=== PATIENT | male | born 1940 | race Caucasian/White ===

== ENCOUNTER 2022-11-12 07:48 | Emergency (ER) | payer MEDICARE ==
[2022-11-12 08:07] LABS: HEMATOCRIT 31.7 % (42.0-52.0); HEMOGLOBIN 10.7 g/dL (14.0-18.0); MEAN CORPUSCULAR HEMOGLOBIN 29.8 pg (27.0-32.0); MEAN CORPUSCULAR HGB CONC 33.8 g/dL (32.0-36.0); MEAN CORPUSCULAR VOLUME 88.3 fL (83.0-97.0); PLATELET COUNT,PLT 138 10^3/uL (150-400); RED BLOOD CELL COUNT 3.59 x10^6/uL (4.50-6.00); WHITE BLOOD CELL COUNT,WBC 14.3 10^3/uL (4.0-11.0)
[2022-11-12 08:22] LABS: ALANINE AMINOTRANSFERASE,ALT 7 U/L (12-78); ALBUMIN 2.7 g/dL (3.4-5.0); ALKALINE PHOSPHATASE 50 U/L (46-116); ASPARTATE AMNIOTRANSFERASE,AST 14 U/L (15-37); BILIRUBIN TOTAL 0.9 mg/dL (0.0-1.0); BLOOD UREA NITROGEN,BUN 49 mg/dL (7-18); CALCIUM 8.3 mg/dL (8.4-10.1); CARBON DIOXIDE,CO2 25 mmol/L (21-32); CHLORIDE,CL 97 mEq/L (98-106); CREATINE KINASE,CK 42 U/L (35-232); CREATININE 2.3 mg/dL (0.7-1.3); EST CRCL DRUG DOSING (CG) 25.19 mL/min; GLUCOSE RANDOM 110 mg/dL (75-99); MAGNESIUM 1.4 mg/dL (1.8-2.4); POTASSIUM,K 4.9 mEq/L (3.5-5.0); PROTEIN TOTAL,TP 5.9 g/dL (6.4-8.2); SODIUM,NA 132 mEq/L (136-145)
[2022-11-12] MEDS: Sodium Chloride 0.9% 1,000 ML IV ONE (08:23)
[2022-11-12] MEDS: Piperacillin/Tazobactam 4.5 GM in Sodium Chloride 0.9% 100 ML IV ONE (08:23)
[2022-11-12 08:35] LABS: C-REACTIVE PROTEIN 32.1 mg/dL (0.2-0.8); ESTIMATED GFR 28 mL/min (>=60); ETHANOL BLOOD MEDICAL < 3 mg/dL (0-3)
[2022-11-12] MEDS: methylPREDNISolone Sodium Succinate 125 MG/2 ML SDV IVPUSH STA (08:40)
[2022-11-12 08:46] LABS: LYMPHOCYTES PERCENT MAN 7 % (21-55); MONOCYTES ABSOLUTE MAN 0.14 10^3/uL (0.00-0.80); MONOCYTES PERCENT MAN 1 % (2-12); NEUTROPHILS ABSOLUTE MAN 13.16 10^3/uL (1.80-7.00); SEG NEUTROPHILS PERCENT MAN 92 % (35-85)
[2022-11-12 08:49] LABS: APPEARANCE,URINE SLIGHTLY CLOUDY (CLEAR); COLOR,URINE DARK YELLOW (YELLOW); GLUCOSE,URINE NEGATIVE (NEGATIVE); KETONES,URINE 15 mg/dL (NEGATIVE); LEUKOCYTE ESTERASE,URINE NEGATIVE (NEGATIVE); NITRITE,URINE NEGATIVE (NEGATIVE); OCCULT BLOOD,URINE NEGATIVE (NEGATIVE); PH,URINE 5.5 (4.5-8.0); PROTEIN,URINE 100 mg/dL (NEGATIVE); UROBILINOGEN,URINE 0.2 EU/dL (0.2-1.0)
[2022-11-12 08:57] LABS: BACTERIA,URINE FEW /HPF (NOT SEEN); BILIRUBIN,URINE SMALL (NEGATIVE); GRANULAR CASTS,URINE MODERATE /LPF (NOT SEEN); RBC,URINE 0-5 /HPF (0-5); SQUAMOUS EPITHELIAL CELLS,UR NOT SEEN /HPF (NOT SEEN); WBC,URINE 0-5 /HPF (0-5)
[2022-11-12 08:58] LABS: MUCUS,URINE FEW /HPF (NOT SEEN)
[2022-11-12 09:01] LABS: AMPHETAMINES,URINE NEGATIVE (NEGATIVE); BARBITURATES,URINE NEGATIVE (NEGATIVE); BENZODIAZEPINE,URINE NEGATIVE (NEGATIVE); MDMA (ECSTASY), URINE NEGATIVE (NEGATIVE); METHADONE,URINE NEGATIVE (NEGATIVE); METHAMPHETAMINES,URINE NEGATIVE (NEGATIVE); OPIATES,URINE NEGATIVE (NEGATIVE); OXYCODONE,URINE NEGATIVE (NEGATIVE); PHENCYCLIDINE,URINE NEGATIVE (NEGATIVE); TCA,URINE NEGATIVE (NEGATIVE)
[2022-11-12] MEDS: Norepinephrine 4 MG in Dextrose 5% in Water 246 ML IV SCH ×2 (09:14)
[2022-11-12] MEDS: Azithromycin 500 MG in Sodium Chloride 0.9% 250 ML IV STA (09:21)
[2022-11-12] MEDS: VANCOmycin 1 GM/200 ML 1 GM in Premix Bag 1 BAG IV STA (09:27)
[2022-11-12 10:20] LABS: BASE EXCESS ARTERIAL -6.8 (-2.0-3.0); BICARBONATE,ARTERIAL 18.5 mm/L (22.0-26.0); O2 DELIVERY DEVICE NON REBR MASK; O2 SATURATION ARTERIAL 90 % (95-98); PCO2 ARTERIAL 32 mm/Hg0 (35-45); PH,ARTERIAL 7.37 (7.35-7.45); PO2 ARTERIAL 60 mm/Hg (80-100)
[2022-11-12] MEDS: Etomidate 2 MG/ML 10 ML SDV IVPUSH ONE ×2 (10:29→10:43)
[2022-11-12] MEDS: Succinylcholine/Normal Saline 200 MG/10 ML Syringe IVPUSH STA (10:29)
[2022-11-12] MEDS: Midazolam 1 MG/ML 2 ML SDV IVPUSH ONE (10:44)
[2022-11-12] MEDS: fentaNYL 50 MCG/ML SDV IVPUSH ONE (10:50)
[2022-11-12] MEDS: fentaNYL 100 MCG/2 ML SDV ONE (11:21)
[2022-11-12] MEDS: Lactated Ringers 1,000 ML ONE (11:22)
== END 2022-11-12 11:09 ==
LOC: CC.ED 07:48 → EDBD 07:48 → CC.ED 11:09
DX: A41.9 Sepsis, unspecified organism (principal); R65.21 Severe sepsis with septic shock; J18.9 Pneumonia, unspecified organism; J96.01 Acute respiratory failure with hypoxia; E87.20 Acidosis, unspecified; Z79.02 Long term (current) use of antithrombotics/antiplatelets; Z79.899 Other long term (current) drug therapy; Z20.822 Contact with and (suspected) exposure to COVID-19
CPT/HCPCS: 31500; 36415; 36600; 51702; 70450; 71045; 80053; 80305; 80307; 81001; 82550; 82803; 82947; 83605; 83735; 84484; 85025; 86140; 87040; 93005; 96365; 96366; 96367; 96368; 96375; 99285; J0330; J0456; J2250; J2543; J2930; J3010; J3370; J3490; J7030; J7050; J7060; J7120; U0002